=== PATIENT | female | born 1990 | race Caucasian/White ===

== ENCOUNTER 2018-11-14 18:27 | Emergency (ER) | payer SELFPAY ==
[~2018-11-14] VITALS: Ht 160 cm; Wt 52.2 kg
--- NOTE | 2018-11-14 18:30 | NUR ---
PATIENT AMBULATED TO BED 4.
[2018-11-14 18:37] VITALS: BP 111/72
--- NOTE | 2018-11-14 18:40 | NUR ---
PATIENT PRESENTS TO ED WITH C/O CHILLS, LIGHT HEADEDNESS X 3 DAYS. DENIES COUGH/COLD SYMPTOMS/FEVERS/CP/SOB. DENIES PAIN. VSS; PATIENT POSITIONED FOR COMFORT; HOB ELEVATED; BEDRAILS UP X2; BED DOWN. ER MD MADE AWARE OF PT STATUS.
--- NOTE | 2018-11-14 18:44 | NUR ---
Patient being evaluated by physician at bedside.
[2018-11-14 19:04] LABS: BASOPHILS # (AUTO) 0.1 K/uL (0.00-0.22); BASOPHILS % (AUTO) 0.6 % (0.0-2.0); EOSINOPHILS # (AUTO) 0.1 K/uL (0-0.4); EOSINOPHILS % (AUTO) 1.4 % (0.0-4.0); HEMATOCRIT 31.7 % (36-48); LYMPHOCYTES # (AUTO) 3.5 K/uL (2.5-16.5); LYMPHOCYTES % (AUTO) 35.7 % (20.5-51.1); MEAN CORPUSCULAR HEMOGLOBIN 24 pg (27-31); MEAN CORPUSCULAR HGB CONC 32 g/dL (33-37); MEAN CORPUSCULAR VOLUME 74.6 fL (80-94); MONOCYTES # (AUTO) 0.8 K/uL (0.8-1.0); MONOCYTES % (AUTO) 7.6 % (1.7-9.3); NEUTROPHILS # (AUTO) 5.4 K/uL (1.8-7.7); NEUTROPHILS % (AUTO) 54.7 % (42.2-75.2); PLATELET COUNT (AUTO) 342 K/uL (140-450); RED BLOOD CELL COUNT(AUTO) 4.24 MIL/uL (4.20-5.40); RED CELL DISTRIBUTION WIDTH 18.3 % (11.6-13.7); WHITE BLOOD COUNT (AUTO) 9.9 K/uL (4.8-10.8)
--- NOTE | 2018-11-14 19:10 | NUR ---
REPORT GIVEN TO ACUTE SPECIALIST NURSE FOR CONTINUE OF CARE.
[2018-11-14 19:14] LABS: ANION GAP 15.4 (8-16); CARBON DIOXIDE 26.5 mmol/L (21-32); CREATININE 1.2 mg/dL (0.6-1.3); POTASSIUM 3.9 mmol/L (3.5-5.1)
[2018-11-14 19:20] LABS: ALBUMIN 3.8 g/dL (3.4-5.0); TOTAL BILIRUBIN 0.4 mg/dL (0.0-1.0)
[2018-11-14] MEDS ORDERED: ONDANSETRON 4 MG ODT PO ONE (19:35)
[2018-11-14] MEDS ORDERED: MECLIZINE 25 MG TAB PO ONE (19:35)
--- NOTE | 2018-11-14 20:30 | NUR ---
Patient discharged with v/s stable. Patient states she feels better and ready to go home. Patient states 0/10 pain at this time. Written and verbal after care instructions given and explained. Patient alert, oriented and verbalized understanding of instructions. Ambulatory with steady gait. All questions addressed prior to discharge. ID band removed. Patient advised to follow up with PMD. Rx of Meclizine given. Patient educated on indication of medication including possible reaction and side effects. Opportunity to ask questions provided and answered.
[2018-11-14 20:34] VITALS: BP 103/34
== END 2018-11-14 20:30 | disposition home or self-care (01) ==
LOC: MED 18:27
DX: R53.1 Weakness (principal); R42 Dizziness and giddiness; R68.83 Chills (without fever)
CPT/HCPCS: 36415; 80053; 81002; 81025; 85025; 99283; J8597